=== PATIENT | female | born 1955 | race Caucasian/White ===

== ENCOUNTER 2021-01-05 06:31 | Day surgery (SDC) | payer MEDICARE, BC ==
[2021-01-01 11:16] LABS: BASOPHILS % (AUTO) 0.5 % (0-1); EOSINOPHILS # (AUTO) 0.1 X10'3 (0-0.9); EOSINOPHILS % (AUTO) 1.5 % (0-6); LYMPHOCYTES # (AUTO) 1.8 X10'3 (1.1-4.8); LYMPHOCYTES % (AUTO) 26.6 % (21-51); MEAN CORPUSCULAR HEMOGLOBIN 26.4 PG (27.0-31.0); MEAN CORPUSCULAR HGB CONC 32.9 g/dL (33.0-36.5); MEAN CORPUSCULAR VOLUME 80.2 FL (78-98); MEAN PLATELET VOLUME 9.8 FL (7.4-10.4); MONOCYTES # (AUTO) 0.6 X10'3 (0-0.9); MONOCYTES % (AUTO) 8.8 % (2-12); NEUTROPHILS # (AUTO) 4.3 X10'3 (1.8-7.7); NEUTROPHILS % (AUTO) 62.6 % (42-75); PRE OP HEMATOCRIT 40.8 % (35.0-45.0); PRE OP HEMOGLOBIN 13.4 g/dL (12.0-16.0); PRE OP PLATELET COUNT 139 X10'3 (140-440); RED CELL DISTRIBUTION WIDTH 17.5 % (11.5-14.5)
[2021-01-01 11:26] LABS: PRE OP INR 1.1 INR; PRE OP PROTIME 11.4 SECONDS (9.0-12.0)
[2021-01-01 11:30] LABS: ALBUMIN 3.7 G/DL (3.4-5.0); ALKALINE PHOSPHATASE 88 IU/L (46-116); BLOOD UREA NITROGEN 16 MG/DL (7-18); BUN/CREATININE RATIO 23.5 (6.6-38.0); CALCIUM 9.5 MG/DL (8.5-10.1); CHLORIDE 106 MMOL/L (99-107); CREATININE 0.68 MG/DL (0.40-0.90); PRE OP ALT 59 U/L (30-65); PRE OP ANION GAP 10 (8-16); PRE OP AST 39 U/L (10-37); PRE OP BILIRUB, TOTAL 0.5 MG/DL (0.0-1.0); PRE OP GLUCOSE 86 MG/DL (70-104); PRE OP POTASSIUM 4.2 MMOL/L (3.4-5.1); PRE OP SODIUM 141 MMOL/L (135-145); TOTAL CARBON DIOXIDE 25.1 MMOL/L (24-32); TOTAL PROTEIN 7.4 G/DL (6.4-8.2); eGFR 87 ML/MIN
[2021-01-05] VITALS (8 sets, daily range): BP systolic 143–167; BP diastolic 90–109
[~2021-01-05] VITALS: Ht 162.6 cm; Wt 108.8 kg
[~2021-01-05 06:31] MED LIST: APIX5TAB3 PO; CELE-193 PO; COL0.6T PO; DEXL60CA3 PO; DILT120C20 PO; FLUT1AER INH; IBAN150T16 PO; LOSA25TA96 PO; MONT10TA32 PO; PRAV40TA3 PO; TIMO5DRO32 EACHEYE; XAL0.005OS EACHEYE; albuterol 2.5 MG/3 ML nebule NEB PRN; cefazolin/dext.iso 2gm/100ml IV ONE; famotidine 20mg tablet PO ONE; ringers solution, lacted 1,000 ML IV SCH
[2021-01-05] MEDS ORDERED: BUPIVAcaine/PF 2.5mg/ml (0.25%) 10ml vial ONE ×2 (06:43→11:43)
[2021-01-05] MEDS ORDERED: ringers solution, lacted 1,000 ML IV SCH (08:20)
[2021-01-05] MEDS ORDERED: proCHLORperazine 10 MG/2 ml inj IV PRN (08:20)
[2021-01-05] MEDS ORDERED: morphine 4 MG/ML inj SYRINge IV PRN (08:20)
[2021-01-05] MEDS ORDERED: meperidine/PF 25mg/ml syringe IV PRN ×3 (08:20)
[2021-01-05] MEDS ORDERED: labetalol 20mg/4ml (5mg/ml) syringe IV PRN (08:20)
[2021-01-05] MEDS ORDERED: morphine 2 MG/ML inj. syringe IV PRN (08:20)
[2021-01-05] MEDS ORDERED: acetaminophen 1,000mg/100ml IV 100 ML IV PRN (08:20)
[2021-01-05] MEDS ORDERED: ondansetron/PF 4mg/2ml inj IV PRN (08:20)
[2021-01-05] MEDS ORDERED: hydrALAZINE 20mg/ml inj. IV PRN (08:20)
[2021-01-05] MEDS ORDERED: ipratropium/albuterol 3ml nebule NEB ONE (10:15)
[2021-01-05] MEDS ORDERED: fentaNYL/PF 50MCG/1 ML 2ML syringe ONE (10:38)
[2021-01-05] MEDS ORDERED: midazolam 1 mg/ML 2ml injection ONE (11:06)
[2021-01-05] MEDS ORDERED: propofol inj 20 ML IV ONE (11:21)
[2021-01-05] MEDS ORDERED: LIDOcaine 0.5% (5mg/ml) 50ml vial ONE (11:21)
--- NOTE | 2021-01-05 11:25 | NUR ---
Received from OR via , accompanied by Anesthesiologist DR RAHMAN and report given by Anesthesiolgist. PT PRESENTS WITH 20G RIGHT HAND, DRESSING ON LEFT HAND DRY AND INTACT. VSS. Addendum: 01/05/21 at 1134 by Christy Glover RN, RN Amended: Links added.
--- NOTE | 2021-01-05 12:05 | NUR ---
PATIENT A&OX4, DENIES PAIN, V/S STABLE,. I HAVE REVIEWED D/C ORDERS WITH PATIENT AND THEY HAVE VERBALIZED UNDERSTANDING. PATIENT D/C HOME WITH ALL BELONGINGS AND FRIEND GAVE TRANSPORT. Addendum: 01/05/21 at 1217 by Christy Glover RN, RN Amended: Links added.
== END 2021-01-05 12:05 | disposition home or self-care (01) ==
LOC: PAS 06:31
PROVIDERS: ATTEND Orthopaedic Surgery Hand Surgery
DX: M18.12 Unilateral primary osteoarthritis of first carpometacarpal joint, left hand (principal); I48.91 Unspecified atrial fibrillation; I10 Essential (primary) hypertension; J45.909 Unspecified asthma, uncomplicated; M85.88 Other specified disorders of bone density and structure, other site; K21.9 Gastro-esophageal reflux disease without esophagitis; M19.071 Primary osteoarthritis, right ankle and foot; M19.041 Primary osteoarthritis, right hand; M17.11 Unilateral primary osteoarthritis, right knee; E66.9 Obesity, unspecified; Z68.41 Body mass index [BMI] 40.0-44.9, adult; Z98.890 Other specified postprocedural states; Z85.3 Personal history of malignant neoplasm of breast; Z91.09 Other allergy status, other than to drugs and biological substances; Z79.899 Other long term (current) drug therapy; Z80.3 Family history of malignant neoplasm of breast; Z83.6 Family history of other diseases of the respiratory system
CPT/HCPCS: 25445; 36415; 71046; 80053; 82948; 85025; 85610; 85730; 93005; 94640; 94760; C1713; J2001; J2250; J2704; J3010; J3490; Z7506; Z7512; A4215; A4618; A7000; J7120

== ENCOUNTER 2021-04-08 09:39 | Emergency (ER) | payer BC, MEDICARE ==
[~2021-04-08] VITALS: Ht 162.6 cm; Wt 106.4 kg
[~2021-04-08 09:39] MED LIST changes: +MONT-40 PO; -MONT10TA32 PO; -albuterol 2.5 MG/3 ML nebule NEB PRN; -cefazolin/dext.iso 2gm/100ml IV ONE; -famotidine 20mg tablet PO ONE; -ringers solution, lacted 1,000 ML IV SCH
[2021-04-08 09:41] VITALS: BP 127/74
== END 2021-04-08 12:16 | disposition home or self-care (01) ==
LOC: ER 09:40
DX: S81.812A Laceration without foreign body, left lower leg, initial encounter (principal); Z88.8 Allergy status to other drugs, medicaments and biological substances; W19.XXXA Unspecified fall, initial encounter; Y93.89 Activity, other specified; Y92.89 Other specified places as the place of occurrence of the external cause; Y99.8 Other external cause status
CPT/HCPCS: 99283